=== PATIENT | female | born 1990 ===

== ENCOUNTER 2017-03-05 20:01 | Emergency (ER) | payer OTHER ==
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
[2017-03-06 01:24] VITALS: BP 140/69; PULSE 113; TEMP 97.1
== END 2017-03-05 20:45 | disposition home or self-care (01) ==
LOC: C.EROB 20:01
DX: Z03.79 Encounter for other suspected maternal and fetal conditions ruled out (principal)

== ENCOUNTER 2017-07-13 16:55 | Inpatient (IN) | payer OTHER ==
[2017-07-13] MEDS ORDERED: Penicillin G 5 Million Unit Vial IVPB ONE ×2 (18:16→19:19)
[2017-07-13] MEDS ORDERED: Lactated Ringer's 1,000 ML IV SCH ×2 (18:30)
[2017-07-13] MEDS ORDERED: Magnesium Sulfate 4 gm/100 ml 4 GM/100 ML BAG IVPB ONE ×2 (18:32→19:50)
[2017-07-13] MEDS ORDERED: Magnesium Sulfate 20 gm 20 GM/500 ML BAG IV SCH (18:45)
[2017-07-13 18:48] LABS: BASO % 0.1 % (0.0-2.0); EOS # 0.1 K/uL (0.0-0.7); EOS % 0.8 % (0.0-4.0); HEMOGLOBIN 11.2 g/dL (11.0-16.0); LYMPH # 2.9 K/uL (1.0-4.3); LYMPH % 25.9 % (20.0-40.0); MEAN CELL VOLUME 69.5 fL (81.0-99.0); MEAN CORPUSCULAR HEMOGLOBIN 22.5 pg (27.0-31.0); MEAN CORPUSCULAR HGB CONC 32.3 g/dL (33.0-37.0); MEAN PLATELET VOLUME 8.9 fL (7.2-11.7); MONO # 0.6 K/uL (0.0-0.8); MONO % 5.2 % (0.0-10.0); NEUT # 7.5 K/uL (1.8-7.0); RBC 4.98 Mil/uL (3.80-5.20); RED CELL DISTRIBUTION WIDTH 16.5 % (11.5-14.5); WHITE BLOOD COUNT 11.1 K/uL (4.8-10.8)
[2017-07-13 18:51] LABS: SQUAMOUS EPITHIAL 3 /hpf (0-5); URINE BILIRUBIN NEGATIVE (NEGATIVE); URINE BLOOD 2+ (NEGATIVE); URINE CLARITY Clear (Clear); URINE COLOR Yellow (YELLOW); URINE GLUCOSE (UA) NORMAL (Normal); URINE LEUKOCYTE ESTERASE NEG Leu/uL (Negative); URINE PROTEIN NEGATIVE (NEGATIVE); URINE UROBILINOGEN NORMAL mg/dL (0.2-1.0)
[2017-07-13 18:58] LABS: ALBUMIN 3.6 g/dL (3.5-5.0); ALT/SGPT 24 U/L (9-52); AST/SGOT 21 U/L (14-36); BLOOD UREA NITROGEN 9 mg/dL (7-17); CALCIUM 9.3 mg/dl (8.6-10.4); GFR AFRICAN-AMERICAN > 60; GFR NON-AFRICAN AMERICAN > 60; URIC ACID 6.9 mg/dL (2.2-7.5)
[2017-07-13 19:14] LABS: PROTHROMBIN TIME 10.5 SECONDS (9.7-12.2)
[2017-07-13] MEDS ORDERED: Magnesium Sulfate 20 gm 20,000 MG/500 ML BAG IV ONE (20:28)
--- NOTE | 2017-07-13 22:23 | OBADHP ---
Datetime: 07/13/2017 21:22 IP Chief Complaint Other: vaginal spotting IP Adm Impression Other: R/O pre-eclampsia; A1GDM. morbid obesity IP Admit Plan Other: Cervical ripening Admit Comment, IP Provider: [place] [id number] Patient initially seen and evaluated at approximately 1810 hours 27 y.o. LMP 10/22/16, revised FAWAD 07/20/18, EGA 39 weeks by sono 02/08/17 at 16w 5d, c/o vagina l spotting while wiping herself at 1100 hours; dark brown, very little. Put on a pantiliner - no sign ificant increase. (+) AFM; denies LOF; (+) occ Ctx, pain scale 4/10. Last had sexual intercourse night. care: [facility]: 1) morbid obesity, BMI>41. S/P ECHO - grossly normal; 2) GD M. Pt states is not on and has never taken meds. Chart review reveals patient prescribed glyburide 1. 25 mg po BID 05/28/17. Fasting F.S. this morning 112; did not do for rest of today - "I was out shopp ing and then didn't feel good". F.S. yesterday 95/115/125/112. Patient states fasting range 71-115; 2 hr post prandials 120s. States last ultrasound 07/08/16, EFW 7lb. 3) GBS (+). 3) sickle cell trait. S /P genetics counseling - FOB was never tested. 4) posterior placenta praevia - per sono 04/2017; not s een on sono 05/2017. 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 No h/o STIs, myomata, abnormal Pap. PMH: morbid obesity PSH: Age 7, T_A NKDA Meds: PNV Soc Hx: denies tobacco, illicit drug or EtOH use. With FOB x 2 years. Lives with her mother. 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 Father when patient very small - S/P motor vehicle acciden t. MGF - prostate cancer. Mat aunt - colon cancer. MGM - heart disease Assessment: 27 y.o. P0, 39 weeks, A1GDM - questionable control. Patient states has F.S. log at [facility] e. FOB brought in only one sheet of paper with entry 07/08 through 07/12. "I can't find the rest of the papers". Fastin,89,87,89,95. 2-hour post prandials: 111-126. Gestational HTN - r/o pre-eclamp prem. Morbid obesity. GBS (+). Patient admitted for delivery. Discussed with patient: cervical ripeni ng. Also, will administer magnesium sulphate for seizure prophylaxis; and antibiotics for GBS prophyl axis. Patient expressed an understanding and agrees. No questions offered. Category 1 tracing. Clinic ally stable. Plan: 1) Admit 2) NPO 3) IVFs - total 125 cc/hr 4) Magnesium: loading 4 grams, then 2 grams/hours 5) Cervidil 6) Admission labs, including pre-eclamptic labs 7) Continuous EFM 8) F.S. Q 4 hr, until active labor, then Q 1 hr 9) Anticipate vaginal delivery Addendum: cervidil placed in posterior vaginal vault at 1958 hours Pelvic Type - PN: Adequate Extremities - PN: Normal Abdomen - PN: Normal Back - PN: Normal Breast - PN: Not Done Lungs - PN: Normal Heart - PN: Normal Thyroid - PN: Not Done Neurologic - PN: Normal HEENT - PN: Normal General - PN: Normal Weight - Estimated: 3632 Presentation-Admit: Vertex FHR - Baseline A Provider: 150 Membranes, Provider: Intact Contraction Comments Provider: irregular Comments, ACOG Physical Exam: Abdomen: Morbidly obese. Gravid. Soft. Non tender in all quadrants. F undal height 41 cm All other systems reviewed and are negative Gestation - Est Wks by US: 39.0 IP Hx Assessment: The History has been Reviewed and is Current Vital Signs Provider: Reviewed Vital Signs Provider Details: elevated BP NICHD Variability Prov Fetus A: Moderate 6-25bpm NICHD Accel Fetus A IP Provider: 15X15 FHR Category Provider Fetus A: Category I NICHD Decel Fetus A IP Provider: None Dilatation, Provider: 2-3 Effacement, Provider: 30 Station, Provider: -3 Genitourinary Exam: Normal DTRs - PN: Normal IP Adm Impression: Term, intrauterine ; No Active Labor; Intact Membranes IP Admit Plan: Admit to unit Datetime: 03/05/2017 20:36 IP Chief Complaint: Trauma/Fall EGA AdmitDate IP: 20.3
[2017-07-14] MEDS ORDERED: Fentanyl/Bupivacaine HCl 250 ML EPI ONE (00:15)
[2017-07-14] MEDS ORDERED: Bupivacaine HCl 0.25% PF (30 ml) Inj ONE (00:15)
[2017-07-14] MEDS ORDERED: Morphine 1 mg/ml preservative-free Inj(Duramorph) ONE (01:15)
[2017-07-14] MEDS ORDERED: Propofol 10 mg/ml Inj (20 ML) ONE (01:16)
[2017-07-14] MEDS ORDERED: Oxytocin 20 units in LR 2,000 ML IV ONE (01:37)
[2017-07-14] MEDS ORDERED: Oxytocin 10 Units/ml Inj ONE (01:39)
--- NOTE | 2017-07-14 03:04 | OBPN ---
Datetime: 07/14/2017 02:45 IP Progress Impression: Non-reassuring heart rate IP Procedures: Sterile Vag Exam IP Progress Plan: Deliver- Section Membranes, Provider: Ruptured Contraction Comments Provider: irregular IP Progress Note Comment: Notified by R.N. at approximately 0045hours - deceleration after epi dural. Patient received in LDR#3, left lateral position, oxygen mask iin place, IVF bolus in progress; an esthesia present. BP noted 49/39, FHR audible and registered at 60s bpm. Cervical exam performed - a s above. Cervidil had been removed. FHR improved to 120s bpm then alternating between 60/70 bpm to 120/130 bpm. Patient also switched from left lateral to right lateral. Anesthesia present throughout addressing hypotension. BP normaliz ed - 107/47. However, FHR continued with variable to late decelerations. Cervical exam repeated with scalp stimulation to maintain FHR in a more normal range. With uterine relaxation, FFHR 130 bpm. With each contraction, FHR decreased to 70bpm. Decision made to proceed with abdominal delivery . Patient consented for same: R/B/C reviewed. Sujatha Pemberton served as dinkey motor operator. Consents signed dated and witn essed, and placed in chart. Patient transfered to O.R. FHR 124 bpm when disconnected. Assessment: 27 y.o. P1, 39w 1d, A1GDM, morbid obesity, GBS (+) on penicillin; mild pre-eclampsia o n magnesium - prolonged deceleration with repetitive late deceleration remote from delivery for C/S. Patient in guarded condition. Plan: 1) Tree Girdler to O.R. Dilatation, Provider: 5 Effacement, Provider: 90 Station, Provider: -1 Datetime: 07/13/2017 21:22 FHR - Baseline A Provider: 150 Gestation - Est Wks by US: 39.0 Weight - Estimated: 3632 Presentation-Admit: Vertex Vital Signs Provider: Reviewed Vital Signs Provider Details: elevated BP NICHD Accel Fetus A IP Provider: 15X15 FHR Category Provider Fetus A: Category I NICHD Variability Prov Fetus A: Moderate 6-25bpm NICHD Decel Fetus A IP Provider: None
[2017-07-14] MEDS ORDERED: Oxycodone/Acetaminophen 5/325 mg Tab PO PRN ×2 (03:14)
--- NOTE | 2017-07-14 03:14 | OBDS ---
MATERNAL INFORMATION Provider Comments: Uncomplicated delivery, live male , RANDY position, loose nuchal cord x 1, ea sily reduced over head, weight 8lb 8z, 's 6/8, thick meconium. Cord pH sent; results pending. Un remarkable placenta - 3 vessel cord. Routine closure. Mother and in stable condition LABOR SUMMARY EDC: 07/20/2017 00:00 No. Babies in Womb: 1 LABOR INFORMATION Cervical Ripening Agents: CERVIDIL IN PLACE Group B Beta Strep: Positive MEMBRANES Membranes Rupture Method: Spontaneous Rupture of Membranes: 07/13/2017 22:45 Length of Rupture (hrs): 2.83 Amniotic Fluid Color: Light Meconium Amniotic Fluid Amount: Moderate Amniotic Fluid Odor: Normal STAGES OF LABOR Stage 3 hrs: 0 Stage 3 min: 0 CSECTION DELIVERY Primary Indication: Nonreassuring Status CSection Urgency: Emergency CSection Incidence: Primary Labor: Labor Elective: N/A CSection Incision: Lower Uterine Transverse Uterine Closure: Double-layer closure BABY A INFORMATION Infant Delivery Date/Time: 07/14/2017 01:35 Method of Delivery: Born in Route : No : N/A Forceps: N/A Vacuum Extraction: N/A Shoulder Dystocia : No SHOULDER DYSTOCIA BABY A Infant Delivery Date/Time: 07/14/2017 01:35 PRESENTATION/POSITION BABY A Presentation: Cephalic Cephalic Presentation: Vertex Breech Presentation: N/A PLACENTA INFORMATION BABY A Placenta Delivery Time : 07/14/2017 01:35 Placenta Method of Delivery: Manual Removal Placenta Status: Delivered SCORES BABY A Heart Rate 1 min: >100 bpm Resp Effort 1 min: Slow, Irregular Reflex Irritability 1 min: Grimace Muscle Tone 1 min: Some Flexion of Extremities Color 1 min: Body [place], Extremities Blue Resuscitation Effort 1 min: Tactile Stimulation; Oxygen SCORE 1 MIN: 6 Heart Rate 5 min: >100 bpm Resp Effort 5 min: Good Cry Reflex Irritability 5 min: Cough or Sneeze or Pulls Away Muscle Tone 5 min: Some Flexion of Extremities Color 5 min: Body [place], Extremities Blue Resuscitation Effort 5 min: Tactile Stimulation; Oxygen SCORE 5 MIN: 8 INFORMATION BABY A Gestational Age at Delivery: 39.1 Gestational Status: Term Outcome : Liveborn Condition : Stable Sex: Male WEIGHT/LENGTH BABY A Birthweight (gms): 3845 Weight (lb): 8 Infant Weight (oz): 8 Infant Length Inches: 20.00 Infant Length cms: 50.8 CORD INFORMATION BABY A No. Cord Vessels: 3 Nuchal Cord : Around Neck x1, Loose Cord Blood Taken: Yes ASSESSMENT BABY A Infant Care By: DR. HEART / Shirlene Transferred To: [facility]
--- NOTE | 2017-07-14 03:28 | PCM.SURG1 ---
Surgeon's Initial Post Op Note - Surgeon's Notes Surgeon: Silvana Freeman MD Body Cleaner: Philip Wayne MD Type of Anesthesia: Other (Epidural) Anesthesia Administered By: Sandro Danielle DO Pre-Operative Diagnosis: 39 weeks gestation, Prolonged deceleration, repetitive late deceleration, remote from delivery; A1GDM; GBS (+); morbid obesity. Operative Findings: Live male , RANDY position, loose nuchal cord x 1; thick meconium liquor; weight 8lb 8oz. 's 6/8. Normal uterus; normal fallopian tubes and ovaries, bilaterally. Post-Operative Diagnosis: Same Operation Performed: Primary LTCS Specimen/Specimens Removed: Placenta Estimated Blood Loss: EBL {In ML}: 1,000 (U.O. 50; IVFs 2,000mL (1st 1,000 mL with 40 units pitocin)) Blood Products Given: N/A Drains Used: No Drains Post-Op Condition: Good Date of Surgery/Procedure: 07/14/17 Time of Surgery/Procedure: 02:30
[2017-07-14] MEDS ORDERED: cefOXitin IV 2 gm in Saline 2 GM in Sodium Chloride 0.9% 100 ML IV SCH (03:30)
[2017-07-14] MEDS ORDERED: cefOXitin IV 2 gm in Saline 2 GM/50 ML BAG IVPB ONE ×2 (04:25→11:08)
[2017-07-14 08:49] LABS: HEMOGLOBIN 10.5 g/dL (11.0-16.0); MEAN CELL VOLUME 70.5 fL (81.0-99.0); MEAN CORPUSCULAR HEMOGLOBIN 23.1 pg (27.0-31.0); MEAN CORPUSCULAR HGB CONC 32.7 g/dL (33.0-37.0); MEAN PLATELET VOLUME 9.5 fL (7.2-11.7); RBC 4.54 Mil/uL (3.80-5.20); RED CELL DISTRIBUTION WIDTH 16.7 % (11.5-14.5)
[2017-07-14 09:11] LABS: ALT/SGPT 18 U/L (9-52); AST/SGOT 24 U/L (14-36); BLOOD UREA NITROGEN 6 mg/dL (7-17); CALCIUM 8.4 mg/dl (8.6-10.4); GFR AFRICAN-AMERICAN > 60; GFR NON-AFRICAN AMERICAN > 60
[2017-07-14] MEDS: cefOXitin 2 GM in Sodium Chloride 0.9% 100 ML IV SCH ×2 (11:07→18:59)
--- NOTE | 2017-07-14 12:58 | OP ---
PROCEDURE DATE: 07/14/2017 SURGEON: Silvana Freeman MD PAIL TESTER: Philip Wayne MD ANESTHESIA TYPE: Epidural. ANESTHESIOLOGIST: Sandro Danielle MD PREOPERATIVE DIAGNOSES: 39 weeks' gestation, prolonged deceleration, repetitive late decelerations, remote from delivery, A1 gestational diabetes mellitus, GBS positive, morbid obesity. POSTOPERATIVE DIAGNOSES: 39 weeks' gestation, prolonged deceleration, repetitive late decelerations, remote from delivery, A1 gestational diabetes mellitus, GBS positive, morbid obesity. OPERATIVE FINDINGS: Live male infant from the right occipital anterior position, loose nuchal cord x1, thick meconium liquor. weight was 8 pounds 8 ounces. 's were 6 and 8 at one and five minutes, respectively. Normal uterus; and normal fallopian tubes and ovaries bilaterally. OPERATION PERFORMED: Primary low transverse Caesarean section. SPECIMEN: Placenta. ESTIMATED BLOOD LOSS: 1,000 mL URINE OUTPUT: 50 mL INTRAVENOUS FLUIDS: 2000 mL. The first 1,000 mL had 40 units of Pitocin. BLOOD PRODUCTS GIVEN: None. COMPLICATIONS: None. DESCRIPTION OF PROCEDURE: The patient was taken to the operating room after having obtained informed consent for the anticipated procedure. This included a discussion of possible risks and complications including, but not limited to, infection requiring antibiotics, hemorrhage requiring blood transfusion, repair of any damage to internal organs, possible Caesarean hysterectomy. The patient expressed understanding, her questions were answered. Consents were signed, dated, witnessed and placed in the chart. The patient had been transferred to the operating room after having assured a heart rate of 124 beats per minute. In the operating room, she was placed on the operating room table in a left lateral tilt. The abdomen was prepped and she was draped in usual sterile fashion. After assuring an adequate level of anesthesia, using the scalpel, a Pfannenstiel incision was made on the skin. The incision was carried down through the subcutaneous tissue using the Bovie electrocautery. The fascia was identified in the midline. It was extended bilaterally by blunt dissection. The rectus muscle was identified and dissected off the overlying fascia. The rectus muscle was in the midline also by blunt dissection, and the abdominal cavity was entered by blunt dissection. The vesicouterine reflection was identified. Bladder flap was not created. A transverse incision was made on the lower uterine segment. Upon entering the uterine cavity, thick meconium liquor was noted. Atraumatic delivery of the then ensued with the findings as above. Once on the operative field, the umbilical cord was doubly clamped and cut and the infant was handed off the field to the aircraft riveter in attendance. A segment of the cord was obtained for cord pH analysis. Results of that were a pH of 6.81 with a base excess of -19.6. Manual extraction ensued for the delivery of the placenta, and this was submitted to Pathology. The uterus was then exteriorized for closure. This was done in two layers using 0-Vicryl: the first layer was in a running interlocking fashion and the second layer was in a horizontal imbricating fashion. Attention was then directed to the posterior aspect of the uterus. Copious irrigation was performed. Reevaluating the uterine incision, it was noted to be hemostatic. The bladder had been taken down after the delivery, and the bladder flap was then reapproximated using 2-0 chromic in a running fashion. The uterus was replaced in the abdominal cavity, and the paracolic gutters were cleared of all debris. Hemostasis was assured using Bovie electrocautery on the left most aspect of the uterine incision, and Surgicel was placed on the uterine incision. The parietal peritoneum was reapproximated using 2-0 chromic in a running fashion. The muscle was reapproximated using 2-0 chromic in a running fashion. The fascia was reapproximated using 1-0 Vicryl in a running fashion. The subcutaneous tissue was reapproximated using 0-plain gut in a running fashion. The skin was reapproximated using surgical clips. The patient was then repositioned in a frog-leg manner - under sterile conditions uterine exploration was performed. Bimanual massage was performed, and the uterus was emptied of additional clots. It was noted to be firm and contracted, at the level of the umbilicus. The patient tolerated the procedure well. She was transferred back to [facility] in stable condition. had been transferred to the nursery in stable condition. Dr. Philip Wayne was present for the entire procedure, from beginning to end. His presence was necessary for : 1) adequate visualization of the operative field at all times 2) the safe and atraumatic delivery of the infant 3) assuring adequate hemostasis throughout the procedure Silvana MD [facility] # [id number] COLTEN
[2017-07-15] MEDS ORDERED: Bisacodyl 5mg EC Tab PO ONE ×2 (07:48→10:15)
[2017-07-15] MEDS: Simethicone 80 mg Chewtab PO SCH ×4 (09:35→21:54)
[2017-07-15] MEDS: Enoxaparin 40 mg Syringe SC SCH (09:36)
[2017-07-15] MEDS: Magnesium Hydroxide Susp 30 ml UD PO SCH ×2 (09:52→19:36)
--- NOTE | 2017-07-15 12:46 | OBPPN ---
Datetime: 07/15/2017 10:48 PP Pain Prov: Within normal limits PP Nausea Prov: Denies PP Flatus Prov: No PP BM Prov: No PP Heart Prov: Normal PP Lungs Prov: Normal PP Abdomen/Uterus Prov: Normal PP Lochia Prov: Normal PP Comments Phys Exam Prov: Abdomen: Soft, appropriately tender s/p C/S, binder in place, incision i s clean, dry and intact. Stapels intact. Fundus is firm and slightly below the umbilicus PP Impression Prov: Normal progression PP Plan Prov: Continue present management PP Progress Note Prov: Patient was seen and examined at bedside. Patient reports moderate pain contr ol with no acute issues. Patient denies nausea, vomiting, fever, chills, very mild lochia, passing fl atus and bowel movement. Fitzgerald discontinued this morning. Patient has been out of bed and has walked. Patient is planning on breast feeding and bottle feeding. Physical Exam: Gen: NAD, AAOX3 Cardio: RRR, +s1, +s2, noo murmurs Pulm: CTA bilaterally Abdomen: Soft, appropriately tender (+ C/S), + Bowel sounds. Binder in placed and incision, is reagan an, dry and intact Ext: No cyanosis, no edema or cyanosis VS: Temp: 98.9, HR: 110, BP: 122/80, O2: 98%, RR: 18 Labs: 11.0>11.2/34.6<242 14.0>10.5/32.0<230 O+, Rubella immune A/P: 27 year old at 39 weeks who is now s/p primary lower transverse POD#1 due to p rolong deceleration 1. Afebrile 2. Moderate pain control 3. Fitzgerald discontinued, voiding trial 4. Monitor for bowel function 5. Encourage out of bed and walking 6. Encourage breast feeding 7. Continue present management 8. Plans discussed with attending, Dr. Rancho Anne DO, PGY-1 agree iwth above pt seen and examined pian peña burroughs and lazara bowel regiment Vital Signs Provider PP: Reviewed
[2017-07-16] MEDS: Enoxaparin 40 mg Syringe SC SCH (10:39)
[2017-07-16] MEDS: Magnesium Hydroxide Susp 30 ml UD PO SCH ×2 (10:39→17:48)
[2017-07-16] MEDS: Simethicone 80 mg Chewtab PO SCH ×4 (10:39→22:18)
[2017-07-16 11:30] LABS: BASO % 0.3 % (0.0-2.0); EOS # 0.2 K/uL (0.0-0.7); EOS % 1.7 % (0.0-4.0); LYMPH # 2.3 K/uL (1.0-4.3); MEAN CELL VOLUME 70.1 fL (81.0-99.0); MEAN CORPUSCULAR HEMOGLOBIN 22.8 pg (27.0-31.0); MEAN CORPUSCULAR HGB CONC 32.5 g/dL (33.0-37.0); MEAN PLATELET VOLUME 8.4 fL (7.2-11.7); MONO # 0.7 K/uL (0.0-0.8); MONO % 5.5 % (0.0-10.0); NEUT # 8.7 K/uL (1.8-7.0); NEUT % 73.5 % (50.0-75.0); RBC 4.39 Mil/uL (3.80-5.20); RED CELL DISTRIBUTION WIDTH 16.4 % (11.5-14.5); WHITE BLOOD COUNT 11.9 K/uL (4.8-10.8)
--- NOTE | 2017-07-16 15:51 | OBPPN ---
Datetime: 07/16/2017 12:03 PP Pain Prov: Within normal limits PP Nausea Prov: Denies PP Flatus Prov: Yes PP BM Prov: No PP Comments Phys Exam Prov: Abdomen: Obese. Soft. (+) BS. Incision with neno - clean, dry and int act. Fundus firm, mobile, 2 FB below umbilicus. Mild lochia rubra Exremities: trace pedal edema bilaterally. no calf tenderness or cyanosis All other systems reviewed and are negative PP Impression Prov: Normal progression PP Plan Prov: Continue present management PP Progress Note Prov: Patient seen and evaluated at approximately 0740 hours: sitting up in chair, room 460. Desires to breastfeed; not producing milk, nor colustrum. Ambulating and voiding without d ifficulty. (+) flatus; (-) BM; not uncomfortable. Denies incisional pain; pain only due to "gas". De nies nausea, vomiting, headaches, dizziness or lightheadedness. P.E.: as above. Obese in NAD. Awake, alert, oriented to time, person and place. Pleasant and coope rative - POD#0 CBC: H/H 10.5/32. Rh (+) Assessment; POD#2, 27 y.o. P1, S/P primary LTCS for prolonged decelaration. Mild pre-eclampt ic versus gestational HTN; was not on magnesium sulphate after delivery. BPs wnl. Returning GI and functions. Though no BM to date, patient is not uncomfortable. Chronic anemia - asymptomatic and hem odynamically stable. Patient is clinically stable. Plan: 1) Continue routine post care 2) Encourage ambulation 3) Anticipate discharge home 07/17/17 (Annotations: Data stored by CPN on behalf of user) Vital Signs Provider PP: Reviewed; Within Normal Limits
[2017-07-17 08:56] VITALS: BP 122/76; PULSE 103; RESP 20; TEMP 98
[2017-07-17] MEDS: Simethicone 80 mg Chewtab PO SCH ×2 (10:55→13:44)
[2017-07-17] MEDS: Magnesium Hydroxide Susp 30 ml UD PO SCH (10:55)
[2017-07-17] MEDS: Enoxaparin 40 mg Syringe SC SCH (10:55)
--- NOTE | 2017-07-17 17:05 | OBDCSUM ---
Datetime: 07/17/2017 13:14 Discharged to, Provider: Home Follow up at, Provider: [facility] Disch Instr Activity: Normal activity Discharge Diagnosis, Provider: Term Delivered Discharge Time: 07/17/2017 13:16 Follow up in weeks, Provider: 07/22/17 Disch Referrals: None Disch Activity Restrictions: No sexual activity; Nothing in vagina - [facility], tampons, douche Datetime: 03/05/2017 20:36 Discharged to, Provider: Home Follow up at, Provider: [facility] Disch Instr Activity: Normal activity; May be up to bathroom; May be up for meals; May Shower Discharge Instructions, Provider: Routine instructions given Discharge Diagnosis, Provider: Term Delivered Follow up in weeks, Provider: 1 week Contraception discussed, Prov: Yes Disch Activity Restrictions: No exercising; No lifting; No driving; No sexual activity; Nothing in v agina - [facility], tampons, douche Discharge Comment, Provider: Please discharge patient home Please take Motrin 600mg PO Q4H PRN Please folloe up with [facility] in 1 week for neno removal, oral contraceptive discus jay, Please avoid heavy lifting and vigorous exercise for 6-8 weeks No sexual intercourse and nothing per vaginal for 6- 8 weeks Please continue ambulation, hydration and breast feeding Please return to the hospital if symptoms of fever, chills, nausea, vomiting, abdominal pain, heav y vaginal bleeding and abnormal vaginal discharge Discharge Diagnosis Prov Other: Diagnosis: 39 weeks of gestation, s/p Contraception after Delivery: Undecided
--- NOTE | 2017-07-17 17:05 | OBPPN ---
Datetime: 07/17/2017 10:43 PP Pain Prov: Within normal limits PP Nausea Prov: Denies PP Flatus Prov: Yes PP BM Prov: Yes PP Heart Prov: Normal PP Lungs Prov: Normal PP Abdomen/Uterus Prov: Normal PP Lochia Prov: Normal PP Extremities Prov: Normal PP C/S Incision Prov: Normal PP Comments Phys Exam Prov: Abdome: Soft, non-tender, fundus is firm, and below the umbilicus. Incis ion is dry, clean and intact; neno in place PP Impression Prov: Normal progression PP Plan Prov: Discharge PP Progress Note Prov: Patient was seen and examined at bedside. Patient reports moderate pain contr ol with no acute issues. Patient denies nausea, vomiting, fever, chills. Patient admits to very mild lochia, passing flatus, bowel movement and urinating without difficulty. Patient is ambulating and to lerating diet. Patient is planning on breast feeding and bottle feeding. Physical Exam: Gen: NAD, AAOX3 Cardio: RRR, +s1, +s2, noo murmurs Pulm: CTA bilaterally Abdomen: Soft, appropriately tender (+ C/S), + Bowel sounds. Binder in placed and incision, is reagan an, dry and intact and neno in place. Fundus is firm and slightly below the umbilicus Ext: No cyanosis, no edema or cyanosis VS: Temp: 98.9, HR: 110, BP: 122/80, O2: 98%, RR: 18 Labs: 11.0>11.2/34.6<242 14.0>10.5/32.0<230. 11.9>10.0/30.7<243 O+, Rubella immune A/P: 27 year old at 39 weeks who is now s/p primary lower transverse POD#3 due to p rolong deceleration 1. Afebrile 2. Pain controlled 3. Continue hydration and ambulation 4. Continue breast feeding 5. Discharge today:Patient was seen and examined at bedside. Patient reports moderate pain control with no acute issues. Patient denies nausea, vomiting, fever, chills, very mild lochia, passing flat us and bowel movement. Fitzgerald discontinued this morning. Patient has been out of bed and has walked. P atient is planning on breast feeding and bottle feeding. Physical Exam: Gen: NAD, AAOX3 Cardio: RRR, +s1, +s2, noo murmurs Pulm: CTA bilaterally Abdomen: Soft, appropriately tender (+ C/S), + Bowel sounds. Binder in placed and incision, is reagan an, dry and intact Ext: No cyanosis, no edema or cyanosis VS: Temp: 98.9, HR: 110, BP: 122/80, O2: 98%, RR: 18 Labs: 11.0>11.2/34.6<242 14.0>10.5/32.0<230 O+, Rubella immune A/P: 27 year old at 39 weeks who is now s/p primary lower transverse POD#1 due to p rolong deceleration 1. Afebrile 2. Pain well-controlled 3. Continue breast feeding 4. Continue hydration and ambulation 5. Discharge today: Please discharge patient home -Please take Motrin 600mg PO Q4H PRN -Please folloe up with [facility] in 1 week for neno removal, oral contraceptive discu ssion, -Please avoid heavy lifting and vigorous exercise for 6-8 weeks -No sexual intercourse and nothing per vaginal for 6- 8 weeks -Please continue ambulation, hydration and breast feeding -Please return to the hospital if symptoms of fever, chills, nausea, vomiting, abdominal pain, hea vy vaginal bleeding and abnormal vaginal discharge Plans discussed with attending, Dr. Kevin Anne Vital Signs Provider PP: Reviewed
[2017-07-17 21:02] VITALS: O2SAT 96
== END 2017-07-17 14:40 | disposition home or self-care (01) | DRG 370 ==
LOC: C.EROB 16:55 → C.4D 18:16 → C.4M 07-14 10:30
PROVIDERS: ADMIT Obstetrics & Gynecology; ATTEND Obstetrics & Gynecology
PROC: 10D00Z1 Extraction of Products of Conception, Low, Open Approach (ICD-10-PCS; principal; 2017-07-14)
DX: O76 Abnormality in fetal heart rate and rhythm complicating labor and delivery (principal); O15.1 Eclampsia complicating labor; O69.81X0 Labor and delivery complicated by cord around neck, without compression, not applicable or unspecified; O99.824 Streptococcus B carrier state complicating childbirth; Z3A.39 39 weeks gestation of pregnancy; Z68.41 Body mass index [BMI] 40.0-44.9, adult; E66.01 Morbid (severe) obesity due to excess calories; O99.214 Obesity complicating childbirth; O24.429 Gestational diabetes mellitus in childbirth, unspecified control; O14.04 Mild to moderate pre-eclampsia, complicating childbirth; Z37.0 Single live birth